=== PATIENT | male | born 1975 | race Caucasian/White ===

== ENCOUNTER 2023-03-13 00:17 | Emergency (ER) | payer MEDICAID ==
[~2023-03-13] VITALS: Ht 175.3 cm; Wt 81.6 kg
[2023-03-13 01:49] VITALS: BP_SYST 120; PULSE 82; RESP 18; TEMP 98.5; O2SAT 97
[2023-03-13] MEDS ORDERED: CETI1TAB2 PO (02:30)
[2023-03-13] MEDS ORDERED: PHEDM120 PO (02:30)
[2023-03-13] MEDS ORDERED: IBUP-1969 PO (02:31)
== END 2023-03-13 04:15 | disposition home or self-care (01) ==
LOC: SED 00:17
DX: J06.9 Acute upper respiratory infection, unspecified (principal); R05.9 Cough, unspecified; M79.10 Myalgia, unspecified site; R50.9 Fever, unspecified; Z79.899 Other long term (current) drug therapy
CPT/HCPCS: 99282